=== PATIENT | female | born 2005 | race Caucasian/White ===

== ENCOUNTER → 2023-11-13 07:51 | Outpatient (BNVA) | payer BC, SELFPAY | PROVIDERS: PCP Nurse Practitioner Family; Visit Provider Nurse Practitioner Women's Health | DX: N92.6 Irregular menstruation, unspecified (principal); Z34.00 Encounter for supervision of normal first pregnancy, unspecified trimester; Z3A.15 15 weeks gestation of pregnancy | CPT/HCPCS: 81025; 82950; 85025; 86850; 86900; 87491; 87591 ==

== ENCOUNTER → 2023-12-17 09:35 | Outpatient (BNVA) | payer SELFPAY | PROVIDERS: PCP Nurse Practitioner Family; Visit Provider Obstetrics & Gynecology | DX: Z34.90 Encounter for supervision of normal pregnancy, unspecified, unspecified trimester (principal) | CPT/HCPCS: 76805; 81000 ==

== ENCOUNTER → 2024-02-16 10:19 | Outpatient (BNVA) | payer MEDICAID, SELFPAY | PROVIDERS: PCP Nurse Practitioner Family; Visit Provider Obstetrics & Gynecology | DX: Z34.90 Encounter for supervision of normal pregnancy, unspecified, unspecified trimester (principal) | CPT/HCPCS: 81000; 82950 ==

== ENCOUNTER → 2024-03-25 07:51 | Outpatient (BNVA) | payer MEDICAID, SELFPAY | PROVIDERS: PCP Nurse Practitioner Family; Visit Provider Nurse Practitioner Women's Health | DX: Z34.90 Encounter for supervision of normal pregnancy, unspecified, unspecified trimester (principal) | CPT/HCPCS: 84315; 87491; 87591 ==

== ENCOUNTER → 2024-04-14 07:54 | Outpatient (BNVA) | payer MEDICAID, SELFPAY | PROVIDERS: PCP Nurse Practitioner Family; Visit Provider Obstetrics & Gynecology | DX: Z34.93 Encounter for supervision of normal pregnancy, unspecified, third trimester (principal) | CPT/HCPCS: 76816 ==

== ENCOUNTER 2024-04-14 09:13 | Outpatient (CLI) | payer MEDICAID, SELFPAY ==
[2024-04-14 09:13] VITALS: RESP 17; BMI 35.4
[2024-04-14 09:27] VITALS: BP 130/81; PULSE 85
[2024-04-14 09:42] VITALS: BP 140/80; PULSE 77
[2024-04-14 09:57] VITALS: BP 135/74; PULSE 83
[2024-04-14 10:13] VITALS: BP 131/84; PULSE 83
== END 2024-04-14 10:27 | disposition home or self-care (01) ==
LOC: OPOB 09:16 → OBGYN 09:17
PROVIDERS: PCP Nurse Practitioner Family; Visit Provider Obstetrics & Gynecology
DX: O16.9 Unspecified maternal hypertension, unspecified trimester (principal); Z3A.00 Weeks of gestation of pregnancy not specified
CPT/HCPCS: 59025; 81000; 87081; 99211

== ENCOUNTER → 2024-04-21 07:48 | Outpatient (BNVA) | payer MEDICAID, SELFPAY | PROVIDERS: PCP Nurse Practitioner Family; Visit Provider Obstetrics & Gynecology | DX: Z34.90 Encounter for supervision of normal pregnancy, unspecified, unspecified trimester (principal) | CPT/HCPCS: 81000 ==

== ENCOUNTER 2024-04-26 06:14 | Inpatient (IN) | payer BC, MEDICAID, SELFPAY ==
[2024-04-26] VITALS (236 sets, daily range): BP systolic 89–180; BP diastolic 45–133; PULSE 61–144; RESP 16; TEMP 35.9–37.1; O2SAT 91–100; BMI 39.4
[2024-04-26 06:23] LABS: Basophils # 0.1 10^3/uL (0.0-0.1); Basophils % 0.5 %; Eosinophils # 0.2 10^3/uL (0.0-0.8); Eosinophils % 1.4 %; Hematocrit 39.7 % (36-47); Lymphocytes # 2.3 10^3/uL (1.5-6.5); Lymphocytes % 21.9 %; Mean Corpuscular HGB Conc 34.8 g/dL (30-55); Mean Corpuscular Hemoglobin 30.8 pg (27-33); Mean Corpuscular Volume 88.6 fl (85-98); Mean Platelet Volume 11.1 fL (7.4-10.4); Monocytes # 0.8 10^3/uL (0.2-0.9); Monocytes % 7.4 %; Neutrophils # 7.15 10^3/uL (1.8-8.0); Neutrophils % 68.5 %; Nucleated Red Blood Cells % 0 %; Platelet Count 220 10^3/cmm (157-399); Red Blood Count 4.48 10^6/uL (3.85-5.65); Red Cell Distribution Width 13.2 % (12.1-15.1); White Blood Count 10.44 10^3/uL (4.5-13.0)
[2024-04-26] MEDS: magnesium sulfate premix 4 GM/100 ML PREMIX IV (06:42)
[2024-04-26] MEDS: dextrose 5%-lactated ringers 1,000 ML 125 ML IV ×2 (06:42→19:54)
[2024-04-26] MEDS: hyDRALAzine 20 mg/mL INJ 1 mL 5 MG IVP ×2 (07:00→08:31)
[2024-04-26] MEDS: magnesium sulfate premix 20 GM/500 ML BAG IV ×2 (07:02→17:16)
--- NOTE | 2024-04-26 08:42 | P.HP_ITS ---
Providers/Chief Complaint 2 Admitting Physician: Brittany Acuna DO Primary MILLED RUBBER TENDER: Dr. Nichols Primary Care Provider: LAYNE Valdes Chief Complaint: back pain, contractions HPI MILLED RUBBER TENDER History of Present Illness Maria Eugenia Webb is a 18 year old female G1, P0 with LMP 06/06/2023 and NIDA 05/04/2024 based on dating ultrasound. Patient was admitted to labor and delivery after observation with complaint of contractions and low back pain. Patient was allowed to ambulate in hallway and upon getting back in bed she had spontaneous rupture membranes. Patient denies problems through this other than increase in blood pressure the last 2 weeks. Patient denies headaches blurred vision chest pain or shortness of breath. record reviewed. Present Details : 1 Para: 0 Review of Systems 2 Const: Denies: fever(s), change in appetite or fatigue Eyes: Denies: change in vision, blurry vision, blind spots, floaters or seeing flashes Card: Denies: palpitations, irregular heart rhythm, edema, lightheadedness, syncope or pre-syncope Resp: Denies: dyspnea or pain on inspiration GI: Denies: abdominal pain, nausea, vomiting, heartburn or GI cramping : Denies: difficulty voiding, dysuria, genital pruritis, vaginal odor, vaginal bleeding, vaginal discharge or other (contractions) Musc: Denies: back pain, limited range of motion or muscle cramps Skin/Breast: Denies: rash, pruritus, breast tenderness or nipple discharge Neuro: Denies: headache(s) or numbness in extremities Psych: Denies: anxiety, depression, mood swings or panic attacks Endo: Denies: polyuria, tired all the time or hot flashes Iván/Lymph: Denies: easy bruising or petechiae Medications/Allergies Home Medications Medication Instructions Recorded Confirmed Last Taken Type vitamin#30 30 mg iron-10 1 cap PO DAILY #30 caps 03/25/24 04/26/24 04/25/24 Rx mg iron-folic acid 1 mg-omg3 capsule Allergies Allergy/AdvReac Type Severity Reaction Status Date / Time No Known Allergies Allergy Verified 04/26/24 03:09 PFSH MILLED RUBBER TENDER 2 PFSH: Family History Mother Hyperlipidemia Diabetes Grandfather Hyperlipidemia Other Hypertension Denies family history of Colon cancer Ovarian cancer Heart disease Breast cancer Uterine cancer Thyroid disease Stroke Social History Smoking and tobacco/nicotine status: never used tobacco/nicotine Other Female Reproductive History: Hx Age of Menarche: 10 Duration of menses: 6-7 days Date of Last Menstrual Period: 06/06/23 Cycle Length: 28 d History History History 2 1 Term 0 Miscarriages/Ectopic Living Children Care NIDA Calculator 2 Estimated Delivery Date Method Current WG Current Estimate 05/04/24 Ultrasound #1 38w 6d Vitals/I&O/Wt Last Vital Signs Pulse 86 04/26/24 08:33 BP 158/97 04/26/24 08:33 O2 Del Method Room Air 04/26/24 06:48 Weight last 48 hrs Weight 107.501 kg Physical Exam 2 Narrative: 18-year-old female alert and orient x 3 no acute distress Resp: COMMON NORMALS: normal respiratory effort and clear to auscultation bilaterally Cardio: COMMON NORMALS: regular rate and regular rhythm Back/Pelvis: OTHER: Abdomen?soft, gravid Cervix?4 cm / 80%/-2 vertex with clear fluid noted Extremity: COMMON NORMALS: normal to inspection and no clubbing, cyanosis or edema Neuro: COMMON NORMALS: patient oriented x3, CN's II-XII intact bilaterally, moves all extremities and deep tendon reflexes 2+ bilaterally Data 04/26/24 06:15 Results Labs OB ([facility]): 2 Obstetrics US 04/14/24 Blood Type A Positive 04/26/24 Antibody Screen Negative 04/26/24 Hct 39.7 % (36-47) 04/26/24 Hgb 13.80 g/dL (12.4-14.8) 04/26/24 Rho(D) Type Rh positive 04/26/24 Plt Count 220 10^3/cmm (157-399) 04/26/24 C.trachomatis RNA (TMA) Not detected (NOT DETECTED) N.gonorrhoeae RNA (TMA) Not detected (NOT DETECTED) T. vaginalis Amp RNA Not detected (NOT DETECTED) 03/25/24 Chlamydia/GC Comment See note 03/25/24 Glucose 1 Hr 50 gm 115 mg/dL (85-140) 02/16/24 Gest Glucose Tolerance 127 mg/dL (70-139) 11/13/23 HCG, Qual Positive (Negative) H 11/13/23 A&P Assessment and plan (1) 38 weeks gestation of : (2) -induced hypertension in third trimester: (3) Spontaneous rupture of membranes: Plan Patient admitted to labor and delivery. Magnesium sulfate 4 g bolus 2 g maintenance Hydralazine as needed to manage hypertension Will treat unknown GBS Will augment with Pitocin if needed Attestations 2 Medical Necessity Statement*: Admit to labor and delivery for management of labor Coding Level of Care Code Acute Code for Chg Fwd Diagnoses 38 weeks gestation of Z3A.38 -induced hypertension in third trimester O13.3 Spontaneous rupture of membranes
[2024-04-26] MEDS: benzocaine-menthol 78 gm Canister 1 SPRAY TOPICAL (08:53)
[2024-04-26] MEDS: hyDRALAzine 20 mg/mL INJ 1 mL 10 MG IVP ×2 (09:00→09:40)
[2024-04-26] MEDS: ondansetron 2 mg/ML SDV 2 mL 4 MG IVP (09:44)
[2024-04-26] MEDS: labetalol 5 mg/mL SDV 20mL 20 MG IVP (09:57)
[2024-04-26] MEDS: oxytocin 30 UNIT/500 ML BAG IV (11:07)
--- NOTE | 2024-04-26 11:34 | P.PN_ITS ---
E BUSINESS SPECIALIST Subjective 2 Subjective: Interval history: 18-year-old female G1, P0 doing well but has required hypertensive protocol to be used. We initially started with hydralazine 5 mg and progressed up now on the labetalol arm of the hypertensive protocol. Patient has responded well. Started Pitocin augmentation due to no cervical change from 4 cm. Patient currently tolerating Pitocin well, she is unsure of the desire for IV pain meds or an epidural. Labor: Station: -1 Amniotic Membrane Status: Ruptured Monitor Mode: Palpation Contraction Pattern: Regular Vitals/I&O/Wt Last Vital Signs Pulse 101 H 04/26/24 11:32 BP 125/73 04/26/24 11:32 Pulse Ox 98 04/26/24 11:22 O2 Del Method Room Air 04/26/24 06:48 04/25/24 04/26/24 04/26/24 22:59 06:59 14:59 Output Total 360 / 360 Balance -360 / -360 Weight last 48 hrs Weight 107.501 kg Physical Exam 2 Urinary Catheter Management: Leggett Latex: Cath Placed During This Visit: yes Urinary Catheter Date of Insertion: 04/26/24 Urinary Catheter Time of Insertion: 08:30 Data 04/27/24 10:00 A&P Assessment and plan (1) : Qualifiers: Weeks of gestation: 15 weeks Qualified Code(s): Z3A.15 - 15 weeks gestation of (2) bleeding: Plan Pitocin augmentation of labor. Hypertensive protocol used with hydralazine, and labetalol. Attestations 2 Medical Necessity Statement*: Management of labor after spontaneous rupture membranes. Coding Level of Care Code Acute Code for Chg Fwd Diagnoses 15 weeks gestation of Z3A.15 Weeks of gestation: 15 weeks bleeding O72.1
[2024-04-26] MEDS: acetaminophen 325 mg Tablet 650 MG PO (12:57)
[2024-04-26 13:26] LABS: Hepatitis C Virus Antibody Non-Reactive (Nonreactive)
[2024-04-26 13:28] LABS: Hepatitis B Surface Antigen Non-Reactive (Nonreactive); Rubella IgG 43.1 IU/mL (0.0-10.0)
[2024-04-26 13:29] LABS: Rapid Plasma Reagin Syphilis Nonreactive (Nonreactive)
[2024-04-26 13:41] LABS: HIV 1 & 2 Antigen Non-Reactive (Non-Reactiv)
[2024-04-26 13:42] LABS: HIV 1 & 2 Antibody Non-Reactive (Non-Reactiv); Magnesium Level (OB Only) 4.6 mg/dL (5.0-7.5)
[2024-04-26] MEDS: ROPivacaine syringe 100 MG/50 ML SYRINGE 13 MG EPIDURAL ×2 (16:00→19:19)
--- NOTE | 2024-04-26 16:06 | P.ANESASSM_ITS ---
Pre-Anesthetic Assessment Height/Weight: Height 1.65 m Weight 107.501 kg Pulse BP Pulse Ox O2 Del Method 85 116/57 99 Room Air 04/26/24 16:05 04/26/24 16:05 04/26/24 16:02 04/26/24 06:48 Preop Diagnosis: labor pain epidural Was Beta Robert taken within 24 hours: N/A Was Clonidine taken within 24 hours: N/A Social No alcohol Exam alert, oriented x 3, clear to auscultation bilaterally and regular rate & rhythm Airway Submandibular: within normal limits Cervical ROM: within normal limits Mallampati: Class II Dentition: full Pulmonary Asthma (activity ) CV/HEM Hypertension None reported Hepatic None reported GI None reported Metabolic None reported Musc/skel None reported Neuropsych None reported Anesthetic Plan ASA status: 2 Anesthesia: Eval. for regional block and Regional (specify below) Medications/Allergies Home Medications Medication Instructions Recorded Confirmed Last Taken Type vitamin#30 30 mg iron-10 1 cap PO DAILY #30 caps 03/25/24 04/26/24 04/25/24 Rx mg iron-folic acid 1 mg-omg3 capsule Allergies Allergy/AdvReac Type Severity Reaction Status Date / Time No Known Allergies Allergy Verified 04/26/24 03:09 Current Medications Generic Name Dose Route Start Last Admin Trade Name Freq PRN Reason Stop Dose Admin Acetaminophen 650 mg 04/26/24 06:15 04/26/24 12:57 Acetaminophen 325 Mg Tablet PO 650 mg Q6H PRN Administration Mild pain or temp > 100.4 Benzocaine 1 spray 04/26/24 08:36 04/26/24 08:53 Benzocaine-Menthol 78 Gm Canister TOPICAL 1 spray PRN PRN Administration PAIN Hydralazine HCl 10 mg 04/26/24 09:29 04/26/24 09:40 Hydralazine 20 Mg/Ml Inj 1 Ml IVP 10 mg ONCE PRN Administration high blood pressure Magnesium Sulfate 20 gm in 500 mls @ 50 mls/hr 04/26/24 06:15 04/26/24 07:02 Magnesium Sulfate Premix IV 50 mls/hr .Q10H NAMRATA Administration Dextrose/Lactated Ringer's 1,000 mls @ 125 mls/hr 04/26/24 06:15 04/26/24 06:42 Dextrose 5%-Lactated Ringers IV 125 mls/hr .Q8H NAMRATA Administration Oxytocin 30 unit in 500 mls @ 1 mls/hr 04/26/24 10:45 04/26/24 11:07 Pitocin IV 1 milliunit/min .Q24H NAMRATA 1 mls/hr Administration Protocol 1 MILLIUNIT/MIN Labetalol HCl 20 mg 04/26/24 09:51 04/26/24 09:57 Labetalol 5 Mg/Ml Sdv 20ml IVP 20 mg PRN PRN Administration HYPERTENSION Protocol Ondansetron HCl 4 mg 04/26/24 06:15 04/26/24 09:44 Ondansetron 2 Mg/Ml Sdv 2 Ml IVP 4 mg Q4H PRN Administration NAUSEA AND VOMITING PFSH Anesthesia Family History Mother Hyperlipidemia Diabetes Grandfather Hyperlipidemia Other Hypertension Denies family history of Colon cancer Ovarian cancer Heart disease Breast cancer Uterine cancer Thyroid disease Stroke Social History Smoking and tobacco/nicotine status: never used tobacco/nicotine Female Reproductive History : 1 Data Anesthesia 04/26/24 06:15 Short CBC 04/26/24 Range/Units 06:15 WBC 10.44 (4.5-13.0) 10^3/uL Hgb 13.80 (12.4-14.8) g/dL Hct 39.7 (36-47) % MCV 88.6 (85-98) fl Plt Count 220 (157-399) 10^3/cmm Neut % (Auto) 68.5 % Neut # (Auto) 7.15 (1.8-8.0) 10^3/uL Blood Bank 04/26/24 06:15 Blood Type A Positive Rho(D) Type Rh positive Antibody Screen Negative Cardiac Studies: 2 No Data to Display
--- NOTE | 2024-04-26 16:07 | ANES.PROC ---
Anesthesia Procedures Procedure/Date: 04/26/24 epidural Procedure Narrative: epidural complete, bolus given, epidural pump initiated with WEB PRESS OPERATOR education given, vitals taken during procedure and satisfactory throughout, patient admits to decrease pain, report of procedure to OB RN Epidural: Time Out Performed: Yes Consents Signed: Procedure Consent Consent: requested by attending/covering physician, from patient, risks and benefits reviewed and patient agrees to proceed Lumbar Level: L3-L4 Epidural position: sitting Epidural procedure: sterile prep of area, 1% lidocaine to numb the area (3 mL), 18 g needle, negative for paresthesia passed, neg for paresthesia, test dose given, 1.5% xylocaine 1:200k epi (5 mL), 0.2% Ropivacaine bolus ml (5 mL), placed PCEA, no systemic response, sterile dressing applied, L.U.D. no apparent complications and 0.2% Ropiavacaine @ mls/hr (13 mL/hr)
--- NOTE | 2024-04-26 16:26 | P.MISC_ITS ---
Miscellaneous Note Purpose of Documentation: Hypotension Note: Following epidural patient blood pressure began to decrease. Ephedrine 20 mg IV given per LOOSE HAND PACKER. 30 mg ephedrine wasted in pyxis
--- NOTE | 2024-04-26 16:26 | PM.MISC ---
Miscellaneous Note Purpose of Documentation: Hypotension Note: Following epidural patient blood pressure began to decrease. Ephedrine 20 mg IV given per FINANCE TEACHER. 30 mg ephedrine wasted in pyxis
[2024-04-26 19:06] LABS: Magnesium Level (OB Only) 5.3 mg/dL (5.0-7.5)
[2024-04-26] MEDS: lidocaine 2% INJ 20 mL INJECTION (21:37)
[2024-04-26] MEDS: fentaNYL 50 mcg/mL INJ 2mL 25 MCG IVP (22:07)
--- NOTE | 2024-04-26 22:50 | PM.DELIVERY ---
Delivery Note: Date of delivery: April 26, 2024 Pre-delivery diagnoses: 38 w 6 d active labor spontaneous rupture of membranes preeclampsia without severe features on MgSO4 pitocin augmentation of labor Post-delivery diagnoses: 38 w 6 d active labor spontaneous rupture of membranes preeclampsia without severe features on MgSO4 pitocin augmentation of labor vaginal delivery third degree perineal laceration and bilateral vaginal sulcus lacerations repaired in layers Procedure: labor augmentation vaginal delivery third degree perineal laceration and bilateral vaginal sulcus lacerations repaired in layers Op report anesthesia: Epidural and Local Delivering Physician: Berto Nichols MD Estimated blood loss (mL): 500 Findings: , OP, vigorous male Cord gases obtained Normal placenta and cord Third-degree perineal laceration and bilateral vaginal sulcus lacerations repaired in layers EBL: 500 cc No complications Pre-Delivery Course: normal labor course with pitocin augmentation patient with elevated BPs, required MgSO4 Delivery: vaginal Post-Delivery Status: stable History History History 1 Term 0 Miscarriages/Ectopic Living Children A&P Assessment and plan (1) Vaginal delivery: plan care (2) -induced hypertension in third trimester: plan continue MgSO4 x 24 hours Coding Level of Care Code Acute Code for Chg Fwd Diagnoses Vaginal delivery O80 -induced hypertension in third trimester O13.3 Time Spent (min) 90
[2024-04-27] VITALS (121 sets, daily range): BP systolic 117–150; BP diastolic 59–117; PULSE 69–218; RESP 16–18; TEMP 35.9–37.3; O2SAT 82–100
[2024-04-27] MEDS: HYDROcodone-acetaminophen 5-325 mg Tablet PO (03:37)
[2024-04-27] MEDS: oxyCODONE-APAP 10-325 mg Tablet 1 TAB PO (05:46)
[2024-04-27] MEDS: ondansetron 2 mg/ML SDV 2 mL 4 MG IVP (09:36)
[2024-04-27] MEDS: dextrose 5%-lactated ringers 1,000 ML 75 ML IV (09:38)
[2024-04-27] MEDS: magnesium sulfate premix 20 GM/500 ML BAG IV (09:39)
--- NOTE | 2024-04-27 09:49 | ANE.PACU2 ---
Inpatient post-anesthesia follow up: Airway intact: Yes Vital signs: Temperature 97.5 F Pulse Rate 96 Respiratory Rate 16 Blood Pressure 146/78 Pulse Oximetry 99 Oxygen Delivery Me thod Room Air Oxygen Flow Rate Fraction of Inspir ed Oxygen Hydration adequate: Yes Nausea and vomiting: No Pain level: 1 Mental status: Baseline Epidural Start/End: Epidural Start Date: 04/26/24 Epidural Start Time: 15:45 Epidural End Date: 04/26/24 Epidural End Time: 22:40
[2024-04-27 10:05] LABS: Hematocrit 32.5 % (36-47); Mean Corpuscular HGB Conc 33.8 g/dL (30-55); Mean Corpuscular Hemoglobin 30.8 pg (27-33); Mean Platelet Volume 10.6 fL (7.4-10.4); Platelet Count 192 10^3/cmm (157-399); Red Blood Count 3.57 10^6/uL (3.85-5.65); Red Cell Distribution Width 13.4 % (12.1-15.1)
[2024-04-27] MEDS: ibuprofen 800 mg tablet PO ×2 (11:00→20:46)
[2024-04-27] MEDS: PRENATAL VIT NO.130/IRON/FOLIC 1 EACH TABLET PO (11:00)
[2024-04-27] MEDS: docusate sodium 100 mg Capsule PO ×2 (11:00→20:46)
--- NOTE | 2024-04-27 13:45 | PM.OBGYPN ---
MIXER CRANE OPERATOR Subjective Subjective: Interval history: No c/o Mild perineal pain Eating, voiding well No bleeding No headache Caring for without any difficulties Labor: Station: +2 Amniotic Membrane Status: Ruptured Monitor Mode: External Contraction Pattern: Irregular Vitals/I&O/Wt Last Vital Signs Temp 98.4 F 04/27/24 17:28 Pulse 74 04/27/24 17:28 Resp 16 04/27/24 05:46 BP 137/72 04/27/24 17:28 Pulse Ox 99 04/27/24 09:27 O2 Del Method Room Air 04/26/24 06:48 04/27/24 04/27/24 04/27/24 06:59 14:59 22:59 Intake Total 1312.900 / 3389.167 200.833 / 200.833 629.583 / 830.416 Output Total 1367 / 3069 925 / 925 750 / 1675 Balance -54.100 / 320.167 -724.167 / -724.167 -120.417 / -844.584 Weight last 48 hrs Weight 237 lb Physical Exam Narrative: BPs 126 / 86, 123 / 76, 122 / 77, 117 / 66 Comfortable, awake, alert Lungs: clear Cor: RRR Abd: soft, nontender Ext: no edema Urinary Catheter Management: Leggett Latex: Cath Placed During This Visit: yes, but has since been removed by the nurse Reason for Continuing Indwelling Catheter: Decision to DC Catheter Urinary Catheter Date of Insertion: 04/26/24 Urinary Catheter Time of Insertion: 22:35 Date Urinary Catheter Removed: 04/27/24 Time Urinary Catheter Discontinued: 17:30 Data 04/27/24 10:00 A&P Assessment and plan (1) Vaginal delivery: PPD #1 and repair of third-degree perineal and vaginal lacerations Doing well Continue care (2) -induced hypertension in third trimester: Plan discontinue MgSO4 BPs much better patient with no headaches, blurry vision, swelling plan follow BPs closely Attestations Medical Necessity Statement*: patient s/p vaginal delivery, PPD #1 Coding Level of Care Code Acute Code for Chg Fwd Diagnoses Vaginal delivery O80 -induced hypertension in third trimester O13.3 Time Spent (min) 30
[2024-04-28 04:50] VITALS: BP 127/77; PULSE 90; RESP 16; TEMP 36.7; O2SAT 99
[2024-04-28] MEDS: PRENATAL VIT NO.130/IRON/FOLIC 1 EACH TABLET PO (09:22)
[2024-04-28] MEDS: ibuprofen 800 mg tablet PO (09:22)
[2024-04-28] MEDS: docusate sodium 100 mg Capsule PO (09:23)
[2024-04-28 09:24] VITALS: BP 141/93; PULSE 100; TEMP 35.8
--- NOTE | 2024-04-28 13:05 | PM.OBGYPN ---
BOARD MILL SUPERVISOR Subjective Subjective: Interval history: no c/o no bleeding, pain no headaches, blurry vision eating, voiding, ambulating well caring for without any difficulties Labor: Station: +2 Amniotic Membrane Status: Ruptured Monitor Mode: External Contraction Pattern: Irregular Vitals/I&O/Wt Last Vital Signs Temp 97.5 F L 04/28/24 14:20 Pulse 96 04/28/24 14:20 Resp 16 04/28/24 14:20 BP 146/78 04/28/24 14:20 Pulse Ox 99 04/28/24 04:50 O2 Del Method Room Air 04/28/24 04:50 Physical Exam Narrative: afebrile, VS normal comfortable, awake, alert Abd: soft, nontender. Fundus firm Ext: no edema, nontender Urinary Catheter Management: Leggett Latex: Cath Placed During This Visit: yes, but has since been removed by the nurse Reason for Continuing Indwelling Catheter: Decision to DC Catheter Urinary Catheter Date of Insertion: 04/26/24 Urinary Catheter Time of Insertion: 22:35 Date Urinary Catheter Removed: 04/27/24 Time Urinary Catheter Discontinued: 17:30 Data 04/27/24 10:00 A&P Assessment and plan (1) Vaginal delivery: PPD #2 and repair of third-degree perineal and vaginal lacerations doing well discharge to home today instructions and precautions given call/return if fever, chills, headache, blurry vision, nausea, vomiting, abdominal pain; vaginal bleeding or discharge; shortness of breath, chest pain, leg pains or swelling; inability to void, perineal pain or swelling; feelings of depression or mood changes; thoughts of suicide or harming others; inability to care for baby. f/u in 1-2 weeks for BP check (2) -induced hypertension in third trimester: BPs normal patient with no headaches, blurry vision, swelling Attestations Medical Necessity Statement*: patient s/p vaginal delivery, plan to discharge to home today Coding Level of Care Code Acute Code for Chg Fwd Diagnoses Vaginal delivery O80 -induced hypertension in third trimester O13.3 Time Spent (min) 20
--- NOTE | 2024-04-28 13:20 | PM.OBGYDC ---
Discharge Providers HAIR OR BEAUTY SALON ASSISTANT Date of Admission: 04/26/24 06:14 Date of Discharge: 04/28/24 Attending Provider at Admission: Brittany Acuna DO Attending Provider at Discharge: Berto Nichols MD Consults: none Primary HAIR OR BEAUTY SALON ASSISTANT: Berto Nichols MD Primary Care Provider: LAYNE Chavez Diagnoses at Discharge Discharge Diagnosis (1) Vaginal delivery: Details from hospital stay: patient admitted at 39+ weeks with active labor and elevated BPs patient was placed on MgSO4 normal labor course patient delivered vaginally with repair of third-degree perineal laceration and bilateral vaginal sulcus lacerations patient did well all BPs were normal patient was discharged to home on second day Status: Acute (2) -induced hypertension in third trimester: Status: Acute Reason for Visit Reason for Visit: back pain, contractions Brief History: 18 y.o. G1 with EDC May 04, 2024 admitted with back pain and painful contractions Hospital Course Hospital Course patient admitted at 39+ weeks with active labor and elevated BPs patient was placed on MgSO4 normal labor course patient delivered vaginally with repair of third-degree perineal laceration and bilateral vaginal sulcus lacerations patient did well all BPs were normal patient was discharged to home on second day Information Peripartum Data: Delivery Method: Vaginal Laceration description: Vaginal - 3rd Degree Episiotomy description: None complications: none Physical Exam Narrative: afebrile, VS normal comfortable, awake, alert Lungs: clear Cor: RRR Abd: soft, nontender. Fundus firm Ext: no edema. Nontender Urinary Catheter Management: Leggett Latex: Cath Placed During This Visit: yes, but has since been removed by the nurse Reason for Continuing Indwelling Catheter: Decision to DC Catheter Urinary Catheter Date of Insertion: 04/26/24 Urinary Catheter Time of Insertion: 22:35 Date Urinary Catheter Removed: 04/27/24 Time Urinary Catheter Discontinued: 17:30 History History History 1 Term 0 Miscarriages/Ectopic Living Children Discharge Data Studies Completed and Pending Laboratory Results WBC 12.50 10^3/uL (4.5-13.0) 04/27/24 10:00 RBC 3.57 10^6/uL (3.85-5.65) L 04/27/24 10:00 Hgb 11.00 g/dL (12.4-14.8) L 04/27/24 10:00 Hct 32.5 % (36-47) L 04/27/24 10:00 MCV 91.0 fl (85-98) 04/27/24 10:00 MCH 30.8 pg (27-33) 04/27/24 10:00 MCHC 33.8 g/dL (30-55) 04/27/24 10:00 RDW 13.4 % (12.1-15.1) 04/27/24 10:00 Plt Count 192 10^3/cmm (157-399) 04/27/24 10:00 MPV 10.6 fL (7.4-10.4) H 04/27/24 10:00 Neut % (Auto) 68.5 % 04/26/24 06:15 Lymph % (Auto) 21.9 % 04/26/24 06:15 Trigg % (Auto) 7.4 % 04/26/24 06:15 Eos % (Auto) 1.4 % 04/26/24 06:15 Baso % (Auto) 0.5 % 04/26/24 06:15 Neut # (Auto) 7.15 10^3/uL (1.8-8.0) 04/26/24 06:15 Lymph # (Auto) 2.3 10^3/uL (1.5-6.5) 04/26/24 06:15 Trigg # (Auto) 0.8 10^3/uL (0.2-0.9) 04/26/24 06:15 Eos # (Auto) 0.2 10^3/uL (0.0-0.8) 04/26/24 06:15 Baso # (Auto) 0.1 10^3/uL (0.0-0.1) 04/26/24 06:15 Nucleated RBC % (auto) 0 % 04/26/24 06:15 Nucleated RBCs # 0.0 /100WBC 04/26/24 06:15 Magnesium 5.3 mg/dL (5.0-7.5) 04/26/24 18:37 RPR Nonreactive (Nonreactive) 04/26/24 12:17 C.trachomatis RNA (TMA) Not detected (NOT DETECTED) 04/26/24 12:17 Chlamydia/GC Comment See note 04/26/24 12:17 Hep Bs Antigen Non-reactive (Nonreactive) 04/26/24 12:17 Hepatitis C Antibody Non-reactive (Nonreactive) 04/26/24 12:17 HIV 1&2 Ab & HIV 1 Ag Non-reactive (Non-Reactiv) 04/26/24 12:17 HIV 1&2 Antibody Non-reactive (Non-Reactiv) 04/26/24 12:17 N.gonorrhoeae RNA (TMA) Not detected (NOT DETECTED) 04/26/24 12:17 Rubella IgG Antibody 43.1 IU/mL (0.0-10.0) H 04/26/24 12:17 Blood Type A Positive 04/26/24 06:15 Rho(D) Type Rh positive 04/26/24 06:15 Antibody Screen Negative 04/26/24 06:15 Procedures Performed labor augmentation vaginal delivery repair of third-degree perineal laceration and bilateral vaginal sulcus lacerations Vitals Last Vital Signs Temp 97.5 F L 04/28/24 14:20 Pulse 96 04/28/24 14:20 Resp 16 04/28/24 14:20 BP 146/78 04/28/24 14:20 Pulse Ox 99 04/28/24 04:50 O2 Del Method Room Air 04/28/24 04:50 Results Labs OB ([facility]): Obstetrics US 04/14/24 Blood Type A Positive 04/26/24 Antibody Screen Negative 04/26/24 Hct 32.5 % (36-47) L 04/27/24 Hgb 11.00 g/dL (12.4-14.8) L 04/27/24 Rho(D) Type Rh positive 04/26/24 Plt Count 192 10^3/cmm (157-399) 04/27/24 Hep Bs Antigen Non-reactive (Nonreactive) 04/26/24 Hepatitis C Antibody Non-reactive (Nonreactive) 04/26/24 Rubella IgG Antibody 43.1 IU/mL (0.0-10.0) H 04/26/24 RPR Nonreactive (Nonreactive) 04/26/24 HIV 1&2 Ab & HIV 1 Ag Non-reactive (Non-Reactiv) 04/26/24 C.trachomatis RNA (TMA) Not detected (NOT DETECTED) 04/26/24 N.gonorrhoeae RNA (TMA) Not detected (NOT DETECTED) 04/26/24 T. vaginalis Amp RNA Not detected (NOT DETECTED) 03/25/24 Chlamydia/GC Comment See note 04/26/24 Glucose 1 Hr 50 gm 115 mg/dL (85-140) 02/16/24 Gest Glucose Tolerance 127 mg/dL (70-139) 11/13/23 HCG, Qual Positive (Negative) H 11/13/23 Discharge Plan Discharge Patient Disposition: Home Condition: Stable Prescriptions: Continued PNV #[id number] 30 mg iron-10 mg iron-1 mg capsule 1 cap PO DAILY Qty: 30 4RF Rx Instructions: take 1 tablet by mouth daily. Discharge Orders: Discharge Order (Routine); Ordered 04/28/24 Ordered By: Berto Nichols Referrals: Berto Nichols MD [Physician] - 06/08/24 11:00 am Discharge Diet: Usual diet Discharge Activity: Increase activity as tolerated Patient Instructions: Depression (DC), Opioid Safety (DC), Preeclampsia and Eclampsia After Delivery (GEN), Hemorrhage (DC), OB Discharge Report, OB Food/Drug Interaction Guide, Opioid Safety, OB Home Care, OB Vaginal Deliveries - [facility], Abnormal Bleeding Activity Restrictions/Additional Instructions: Return to office in 1-2 weeks for BP check Discharge Attestations HAIR OR BEAUTY SALON ASSISTANT Time Spent in Discharge Care*: less than 30 min Coding Level of Care Code Acute Code for Chg Fwd Diagnoses Vaginal delivery O80 -induced hypertension in third trimester O13.3 Time Spent (min) 20
[2024-04-28 13:55] VITALS: BP 146/78; PULSE 96
[2024-04-28 14:20] VITALS: BP 146/78; PULSE 96; RESP 16; TEMP 36.4
[2024-04-28 19:40] LABS: Chlamydia Trachomatis RNA TMA NOT DETECTED (NOT DETECTED); Neisseria Gonorrhoeae RNA, TMA NOT DETECTED (NOT DETECTED)
== END 2024-04-28 14:25 | disposition home or self-care (01) | DRG 768 ==
LOC: OPOB 06:14 → OBGYN 06:14
PROVIDERS: Admitting Provider Obstetrics & Gynecology; PCP Registered Nurse; Visit Provider Obstetrics & Gynecology
DX: O13.4 Gestational [pregnancy-induced] hypertension without significant proteinuria, complicating childbirth (principal); Z37.0 Single live birth; O70.20 Third degree perineal laceration during delivery, unspecified; Z3A.39 39 weeks gestation of pregnancy; I95.2 Hypotension due to drugs
CPT/HCPCS: 36415; 51702; 59025; 59409; 83735; 85025; 85027; 86592; 86762; 86803; 86850; 86900; 87340; 87491; 87591; 87806; 96374; 98960; 99211; J0360; J2405; J2590; J2795; J3010; J3475; J3490; J7121

== ENCOUNTER 2024-05-02 20:51 | Emergency (ER) | payer BC, MEDICAID, SELFPAY ==
[2024-05-02 20:56] VITALS: BP 146/94; PULSE 77; RESP 17; TEMP 36.6; O2SAT 99; BMI 35.9
--- NOTE | 2024-05-02 21:07 | USR_ITS ---
PROCEDURE INFORMATION: Exam: US Pelvis, Complete, Non-Obstetric Exam date and time: 05/02/2024 9:40 PM Age: 18 years old Clinical indication: Other: Bleeding; Additional info: hemorrhage TECHNIQUE: Imaging protocol: Transabdominal pelvic nonobstetric ultrasound. Complete exam. Real time ultrasound with image documentation. COMPARISON: [place] [id number] 04/14/2024 8:04 AM FINDINGS: Uterus: Trace amount of fluid in the endometrial canal. Scattered bright echoes in the endometrial canal could represent gas bubbles or residual blood clot. However no large collection to suggest retained products of conception. The cervix is unremarkable. Right ovary/adnexa: The right ovary measures 3.2 x 1.8 x 1.4 cm and is normally perfused as seen on color Doppler with spectral analysis. Left ovary/adnexa: The left ovary measures 2.9 x 2.1 x 1.3 cm and is normally perfused as seen on color Doppler with spectral analysis. Intraperitoneal space: No free fluid. Urinary bladder: The urinary bladder is normal. US/US pelvic complete* [id number] IMPRESSION: 1. Scattered residual fluid and debris in the endometrial canal. No convincing evidence for retained products of conception. 2. Unremarkable ovaries.
[2024-05-02] MEDS: sodium chloride 0.9% 1,000 ML 999 ML IV (21:46)
[2024-05-02 21:49] LABS: Basophils # 0.1 10^3/uL (0.0-0.1); Basophils % 0.8 %; Eosinophils # 0.4 10^3/uL (0.0-0.8); Eosinophils % 4.2 %; Lymphocytes # 1.9 10^3/uL (1.5-6.5); Lymphocytes % 20.5 %; Mean Corpuscular HGB Conc 33.3 g/dL (30-55); Mean Corpuscular Hemoglobin 30.6 pg (27-33); Mean Corpuscular Volume 91.8 fl (85-98); Mean Platelet Volume 9.4 fL (7.4-10.4); Monocytes # 0.7 10^3/uL (0.2-0.9); Neutrophils # 6.01 10^3/uL (1.8-8.0); Neutrophils % 66.1 %; Nucleated Red Blood Cells % 0 %; Platelet Count 321 10^3/cmm (157-399); Red Blood Count 3.92 10^6/uL (3.85-5.65); Red Cell Distribution Width 13.1 % (12.1-15.1); White Blood Count 9.09 10^3/uL (4.5-13.0)
[2024-05-02 21:58] LABS: HCG, Serum Qual Positive (Negative)
[2024-05-02 22:00] VITALS: BP 141/84; PULSE 75; RESP 16; O2SAT 99
[2024-05-02 22:03] LABS: INR 0.98 (0.8-1.2)
[2024-05-02 22:04] LABS: Lactic Sepsis W/Reflex 0.8 mmol/L (0.5-2.2); Partial Thromboplastin Time 25.8 SECONDS (23.9-36.7)
[2024-05-02 22:05] LABS: Alanine Aminotransferase 11 U/L (0-33); Albumin Level 3.6 g/dL (3.5-5.2); Alkaline Phosphatase 151 U/L (35-105); Anion Gap 15.2 (5-19); Aspartate Amino Transferase 11 U/L (0-32); Blood Urea Nitrogen 11 mg/dL (6-20); C Reactive Protein 32.1 mg/L (0.0-4.9); Calcium 8.6 mg/dL (8.5-10.5); Carbon Dioxide 24 mmol/L (22-29); Chloride 105 mmol/L (98-107); Creatinine Clr Calc Pharmacy 148.5282; Globulin 3.6 g/dL (1.3-4.6); Glomerular Filtration Rate 106.7 mL/min (90-130); Glucose 90 mg/dL (65-115); Osmolality Calculated 289 mOsm/kg (285-295); Potassium 4.2 mmol/L (3.5-5.1); Sodium 140 mmol/L (136-145); Total Bilirubin 0.2 mg/dL (0.15-1.2); Total Protein 7.2 g/dL (6.6-8.7)
[2024-05-02 22:17] LABS: Add Urine Microscopic? YES; Bilirubin Urine Neg (Negative); Blood Urine 3+ (Negative); Glucose Urine UA Norm (Normal); Ketones Urine 1+ (Negative); Leukocyte Esterase Urine 2+ (Negative); Nitrate Urine Negative (Negative); Protein Urine 2+ (Negative); RBC Urine TOO NUMEROUS TO CNT /hpf (0-2); Urine Appearance Cloudy (CLEAR); Urine Color Red (Yellow); Urobilinogen Urine 1 mg/dL (Negative); WBC Urine 15-25 /hpf (0-5); pH Urine 7 (5-7)
[2024-05-02 22:18] LABS: Add Urine Culture? Yes; Amorphous Sediment Urine 1+ /hpf; Bacteria Urine 3+ /hpf; Mucus Urine TRACE /hpf; Squamous Epithelial Cell Urine 0-4 /hpf (0-5)
[2024-05-02] MEDS: methylergonovine 0.2 mg/mL INJ 1 mL 0.200000000000000011 MG IM (23:03)
[2024-05-02 23:52] VITALS: PULSE 87; RESP 16; O2SAT 98
--- NOTE | 2024-05-03 01:25 | ED_ITS ---
HPI - Female Genitourinary 2 General: Chief complaint: Urogenital-Female Stated complaint: Baby Week Old\Bleed Alot Time Seen by Provider: 05/02/24 21:07 History of Present Illness: 18-year-old female who is 1 week postpar rajinder. She presents with an increase in bleeding for the past 30 hours or so. Bleeding had slowed prior to that in normal fashion . She does not have a fever. No increased pain. She does note that she delivered vaginally, and she had a vaginal tear with repair using 6 sutures. She does not know if she is bleeding vaginally, or bleeding from her cervix. Associated symptoms: Deny abdominal pain or nausea Review of Systems 2 Const: Denies: fever(s) or chills Card: Denies: chest pain Resp: Denies: dyspnea GI: Denies: abdominal pain, nausea, vomiting, diarrhea or hematochezia : Denies: flank pain, difficulty voiding or dysuria PFSH ED 2 PFSH: Medical History (Updated 05/03/24 @ 00:01 by ABI Ramírez) Vaginal delivery -induced hypertension in third trimester Spontaneous rupture of membranes 38 weeks gestation of Family History Mother Hyperlipidemia Diabetes Grandfather Hyperlipidemia Other Hypertension Denies family history of Colon cancer Ovarian cancer Heart disease Breast cancer Uterine cancer Thyroid disease Stroke Social History Smoking and tobacco/nicotine status: never used tobacco/nicotine Physical Exam 2 Const: COMMON NORMALS: no acute distress GENERAL APPEARANCE: cooperative; not ill appearing and not frail appearing HENMT: COMMON NORMALS: normocephalic, atraumatic and Normal external nose present HEAD & SCALP: normocephalic and atraumatic FACE & SINUS: normal facial exam and face symmetric NOSE: Normal external nose present Eye: COMMON NORMALS: Equal, round and reactive pupils present and EOMs intact bilaterally PUPIL: Yes Equal, round and reactive pupils present Neck/C-Spine: GENERAL: Yes trachea midline Chest: CHEST: Yes Symmetrical chest wall rise Resp: COMMON NORMALS: normal respiratory effort, No retractions, No use of accessory muscles and clear to auscultation bilaterally AUSCULTATION: clear to auscultation bilaterally Cardio: COMMON NORMALS: regular rate and regular rhythm RATE: regular rate RHYTHM: regular rhythm GI: COMMON NORMALS: Normal to inspection, nondistended, normoactive bowel sounds present : EXTERNAL FEMALE EXAM: Yes normal appearance of the urethra SPECULUM EXAM - VAGINA: No erythematous, No lesion and No tissue present in vagina S PECULUM EXAM - CERVIX: Yes Cervical os closed, No Tissue present in the cervical os and Yes Cervical bleeding OB/EXTERNAL & SPECULUM: no tissue noted in vagina Extremity: COMMON NORMALS: no pedal edema Neuro: JOANNE COMA SCALE: document GCS findings [place] coma scale eye opening: Spontaneous Joanne coma scale verbal response: Orientated Joanne coma scale motor response: Obey commands [place] coma scale total score: 15 S ENSORY EXAM: Yes extremities (intact) Psych: COMMON NORMALS: speech normal SPEECH: Yes normal speech Skin: COMMON NORMALS: no rashes or lesions noted GENERAL SKIN EXAM: no rashes or lesions noted Course 2 Consultations: Consultation #1: Simone Vital Signs: Vital signs: Vital Signs Temperature 97.9 F 05/02/24 20:56 Pulse Rate 87 05/02/24 23:52 Respiratory Rate 16 05/02/24 23:52 Blood Pressure 141/84 05/02/24 22:00 Pulse Oximetry 98 05/02/24 23:52 Oxygen Delivery Me thod Room Air 05/02/24 20:56 MDM - Female Medical Decision Making Hemoglobin is 12 which is improved from prior. White blood cell count is 9. Platelet count is normal. Other laboratory is not remarkable. Her lactic acid is 0.8. Ultrasound does not reveal evidence for retained products of conception. On pelvic exam, her cervix appears normal. She does have some old blood actively coming through. Spoke with her water control supervisor. He recommends home on Methergine. He requests we give first dose here intramuscularly. This is completed. Patient counseled. Her water control supervisor will see her later this week. He notes that he will get a hold of her tomorrow. Lab Data 05/02/24 21:34 05/02/24 21:34 Radiology Impressions Pelvis Ultrasound 05/02/24 21:07 IMPRESSION: 1. Scattered residual fluid and debris in the endometrial canal. No convincing evidence for retained products of conception. 2. Unremarkable ovaries. Laboratory Results WBC 9.09 10^3/uL (4.5-13.0) 05/02/24 21:34 RBC 3.92 10^6/uL (3.85-5.65) 05/02/24 21:34 Hgb 12.00 g/dL (12.4-14.8) L 05/02/24 21:34 Hct 36.0 % (36-47) 05/02/24 21:34 MCV 91.8 fl (85-98) 05/02/24 21:34 MCH 30.6 pg (27-33) 05/02/24 21:34 MCHC 33.3 g/dL (30-55) 05/02/24 21:34 RDW 13.1 % (12.1-15.1) 05/02/24 21:34 Plt Count 321 10^3/cmm (157-399) 05/02/24 21:34 MPV 9.4 fL (7.4-10.4) 05/02/24 21:34 Neut % (Auto) 66.1 % 05/02/24 21:34 Lymph % (Auto) 20.5 % 05/02/24 21:34 [place] % (Auto) 8.0 % 05/02/24 21:34 Eos % (Auto) 4.2 % 05/02/24 21:34 Baso % (Auto) 0.8 % 05/02/24 21:34 Neut # (Auto) 6.01 10^3/uL (1.8-8.0) 05/02/24 21:34 Lymph # (Auto) 1.9 10^3/uL (1.5-6.5) 05/02/24 21:34 [place] # (Auto) 0.7 10^3/uL (0.2-0.9) 05/02/24 21:34 Eos # (Auto) 0.4 10^3/uL (0.0-0.8) 05/02/24 21:34 Baso # (Auto) 0.1 10^3/uL (0.0-0.1) 05/02/24 21:34 Nucleated RBC % (auto) 0 % 05/02/24 21:34 Nucleated RBCs # 0.0 /100WBC 05/02/24 21:34 PT 13.30 SECONDS (12.1-14.9) 05/02/24 21:34 INR 0.98 (0.8-1.2) 05/02/24 21:34 APTT 25.8 SECONDS (23.9-36.7) 05/02/24 21:34 Sodium 140 mmol/L (136-145) 05/02/24 21:34 Potassium 4.2 mmol/L (3.5-5.1) 05/02/24 21:34 Chloride 105 mmol/L (98-107) 05/02/24 21:34 Carbon Dioxide 24 mmol/L (22-29) 05/02/24 21:34 Anion Gap 15.2 (5-19) 05/02/24 21:34 BUN 11 mg/dL (6-20) 05/02/24 21:34 Creatinine 0.7 mg/dL (0.5-0.9) 05/02/24 21:34 GFR Calculation 106.7 mL/min (90-130) 05/02/24 21:34 Glucose 90 mg/dL (65-115) 05/02/24 21:34 Calculated Osmolality 289 mOsm/kg (285-295) 05/02/24 21:34 Lactic Acid 0.8 mmol/L (0.5-2.2) 05/02/24 21:34 Calcium 8.6 mg/dL (8.5-10.5) 05/02/24 21:34 Total Bilirubin 0.2 mg/dL (0.15-1.2) 05/02/24 21:34 AST 11 U/L (0-32) 05/02/24 21:34 ALT 11 U/L (0-33) 05/02/24 21:34 Alkaline Phosphatase 151 U/L (35-105) H 05/02/24 21:34 C-Reactive Protein 32.1 mg/L (0.0-4.9) H 05/02/24 21:34 Total Protein 7.2 g/dL (6.6-8.7) 05/02/24 21:34 Albumin 3.6 g/dL (3.5-5.2) 05/02/24 21:34 Globulin 3.6 g/dL (1.3-4.6) 05/02/24 21:34 HCG, Qual Positive (Negative) H 05/02/24 21:34 Urine Color Red (Yellow) A 05/02/24 22:05 Urine Appearance Cloudy (CLEAR) A 05/02/24 22:05 Urine pH 7 (5-7) 05/02/24 22:05 Ur Specific Johnson 1.010 (1.005-1.030) 05/02/24 22:05 Urine Protein 2+ (Negative) H 05/02/24 22:05 Urine Glucose (UA) Norm (Normal) 05/02/24 22:05 Urine Ketones 1+ (Negative) H 05/02/24 22:05 Urine Blood 3+ (Negative) H 05/02/24 22:05 Urine Nitrate Negative (Negative) 05/02/24 22:05 Urine Bilirubin Neg (Negative) 05/02/24 22:05 Urine Urobilinogen 1 mg/dL (Negative) H 05/02/24 22:05 Ur Leukocyte Esterase 2+ (Negative) H 05/02/24 22:05 Urine RBC Too numerous to cnt /hpf (0-2) H 05/02/24 22:05 Urine WBC 15-25 /hpf (0-5) H 05/02/24 22:05 Ur Squamous Epith Cells 0-4 /hpf (0-5) H 05/02/24 22:05 Amorphous Sediment 1+ /hpf 05/02/24 22:05 Urine Bacteria 3+ /hpf (NONE) H 05/02/24 22:05 Urine Mucus Trace /hpf 05/02/24 22:05 Blood Type A Positive 05/02/24 21:34 Rho(D) Type Rh positive 05/02/24 21:34 Antibody Screen Negative 05/02/24 21:34 All radiology interpretation(s) finalized by discharge Discharge Plan Discharge Patient Disposition: Home Clinical Impression: bleeding Condition: Stable Prescriptions: New methylergonovine 0.2 mg tablet 0.2 mg PO QID 3 Days Qty: 12 0RF No Action PNV #[id number] 30 mg iron-10 mg iron-1 mg capsule 1 cap PO DAILY Qty: 30 4RF Rx Instructions: take 1 tablet by mouth daily. Discharge Orders: Discharge ED (Routine); Ordered 05/02/24 Ordered By: Lino Penny Referrals: Berto Nichols MD [Physician] - 1-3 days Jordin Boss FNP [Primary Care Provider] - Patient Instructions: Bleeding (ED), Opioid Safety, Pain Management Activity Restrictions/Additional Instructions: Fill the medication tomorrow, and take as directed. Call your doctor tomorrow for an appointment this week. Return for fever greater than 100, worsening pain, worsening hemorrhage, other concerning symptoms. Coding Level of Care Code ED Restaurant Shift Supervisor for Jarvis Noble
== END 2024-05-02 23:05 | disposition home or self-care (01) ==
PROVIDERS: Emergency Provider Emergency Medicine; PCP Registered Nurse
DX: O72.1 Other immediate postpartum hemorrhage (principal)
CPT/HCPCS: 76856; 80053; 81001; 83605; 84703; 85025; 85610; 85730; 86140; 86850; 86900; 87086; 96360; 96372; 99285; E0352; J2210; J7030

== ENCOUNTER → 2024-05-11 09:06 | Outpatient (BNVA) | payer BC, MEDICAID, SELFPAY | PROVIDERS: PCP Registered Nurse; Visit Provider Obstetrics & Gynecology | DX: O90.81 Anemia of the puerperium (principal) | CPT/HCPCS: 85025 ==

== ENCOUNTER → 2024-12-31 08:49 | Outpatient (BNVA) | payer MEDICAID, SELFPAY | PROVIDERS: PCP Registered Nurse; Visit Provider Obstetrics & Gynecology | DX: N93.9 Abnormal uterine and vaginal bleeding, unspecified (principal); R82.90 Unspecified abnormal findings in urine | CPT/HCPCS: 81025; 84315 ==

== ENCOUNTER → 2025-09-27 16:14 | Outpatient (BNVA) | payer MEDICAID, SELFPAY | PROVIDERS: PCP Registered Nurse; Visit Provider Nurse Practitioner Women's Health | DX: Z12.4 Encounter for screening for malignant neoplasm of cervix (principal); R30.0 Dysuria | CPT/HCPCS: 81000; 87624 ==